=== PATIENT | female | born 1960 | race American Indian/Alaskan Native ===

== ENCOUNTER 2017-02-08 18:47 | Emergency (ER) | payer OTHER ==
[2017-02-08 19:37] VITALS: BP 174/87
--- NOTE | 2017-02-08 21:52 | Emergency Department Report ---
ED Eye Problem HPI - General Chief complaint: Eye Problems Stated complaint: LT EYE REDNESS Time Seen by Provider: 02/08/17 21:51 Source: patient, family Mode of arrival: Ambulatory Limitations: No Limitations - History of Present Illness Initial comments: Patient here complaining of left eye feels like trash is in her eye. She says she woke up this morning with this. She reports eye pain at 8 out of 10 and that her left eye watery. Reports redness to left eye. She wears glasses and denies wearing contacts. TD shot is not up-to-date. She doesn't remember any eye trauma or any foreign body getting in her eye. Reports left eye feels scratchy. Denies any blurred vision. Reports sensitivity to light. Denies any known contact with pink eye. Patient has history of high blood pressure and previous heart attack in 2013 with stent placement. She is not currently having any other symptoms away from left eye pain and sensation of foreign body. MD chief complaint: eye pain, eye redness, foreign body -: This morning Onset Description: sudden Location: left eye Place: home If Injury: none Eye Symptoms: redness, pain, foreign body sensation, photophobia Severity scale (0 -10): 8 If Pain, Quality: burning Consistency: constant Associated Symptoms: none Treatments Prior to Arrival: none - Related Data Patient Tetanus UTD: No Previous Rx's Medication Instructions Recorded Last Taken Type Acetaminophen/Codeine [Tylenol 1 tab PO Q6H PRN #12 tab 02/08/17 Unknown Rx /Codeine # 3 tab] Gentamicin 0.3% Ophth Soln 2 drops OS Q8H #1 bottle 02/08/17 Unknown Rx Allergies Allergy/AdvReac Type Severity Reaction Status Date / Time No Known Allergies Allergy Unverified 02/08/17 19:31 ED Review of Systems ROS: Stated complaint: LT EYE REDNESS Other details as noted in HPI Comment: All other systems reviewed and negative Constitutional: denies: chills, fever Eyes: eye pain, other (foreign body sensation). denies: eye discharge, vision change ENT: denies: ear pain, throat pain Respiratory: no symptoms reported Cardiovascular: denies: chest pain, palpitations, edema, syncope Gastrointestinal: denies: nausea, vomiting Musculoskeletal: denies: back pain, arthralgia Skin: denies: rash Neurological: denies: headache ED Past Medical Hx - Past Medical History Previous Medical History?: Yes Hx Hypertension: Yes Hx Heart Attack/AMI: Yes (2014 with Stent placement) - Surgical History Past Surgical History?: Yes Hx Coronary Stent: Yes Additional Surgical History: Tubal Ligation - Family History Family history: hypertension - Social History Smoking Status: Never Smoker Substance Use Type: None - Medications Home Medications: Home Medications Medication Instructions Recorded Confirmed Last Taken Type Acetaminophen/Codeine [Tylenol 1 tab PO Q6H PRN #12 tab 02/08/17 Unknown Rx /Codeine # 3 tab] Gentamicin 0.3% Ophth Soln 2 drops OS Q8H #1 bottle 02/08/17 Unknown Rx ED Physical Exam - General Limitations: No Limitations General appearance: alert, in no apparent distress - Head Head exam: Present: atraumatic, normocephalic, normal inspection - Eye Eye exam: Present: normal appearance, PERRL, EOMI, conjunctival injection (left) . Absent: scleral icterus, nystagmus, periorbital swelling, periorbital tenderness Pupils: Present: normal accommodation - Expanded Eye Exam Expanded Eyelids: Normal Inspection: Left (bilateral) Pupils: Regular, Round: Bilateral, Reactive: Bilateral Sclera/Conjunctival: Injection: Left (erythema without any drainage.) Anterior chamber: Normal Inspection: Bilateral Posterior chamber: Normal Inspection: Bilateral Visual acuity (R) = 20/: 30 Visual acuity (L) = 20/: 30 (both eyes 20/20) With correction: Yes - ENT ENT exam: Present: normal exam, normal orophraynx, mucous membranes moist, TM's normal bilaterally, normal external ear exam - Neck Neck exam: Present: normal inspection, full ROM. Absent: tenderness, meningismus, lymphadenopathy - Respiratory Respiratory exam: Present: normal lung sounds bilaterally. Absent: respiratory distress, chest wall tenderness - Cardiovascular Cardiovascular Exam: Present: regular rate, normal rhythm, normal heart sounds - Extremities Exam Extremities exam: Present: normal inspection, full ROM, normal capillary refill. Absent: tenderness, pedal edema, joint swelling, calf tenderness - Neurological Exam Neurological exam: Present: alert, oriented X3, normal gait - Psychiatric Psychiatric exam: Present: normal affect, normal mood - Skin Skin exam: Present: warm, dry, intact, normal color. Absent: rash ED Course Vital Signs 02/08/17 19:33 Temperature 98.9 F Pulse Rate 69 Respiratory 20 Rate Blood Pressure 174/87 O2 Sat by Pulse 97 Oximetry - Reevaluation(s) Reevaluation #1: 02/08/17 22:44 Patient given Percocet 5/325 tablets 2 tablets in emergency room for left eye pain. She was also updated on her tetanus. - Procedure Description Procedures done: Eye procedure: Left eye examine under Plata lamp. Prior to examination, 2 drops of tetracaine instilled and left eye and patient complaining of burning. Fluorescein staining applied to left eye. Left eye examine under Plata lamp and noted small corneal abrasion left lateral cornea. Eyes/with normal saline. Patient tolerated procedure well. She received Boostrix in emergency room. ED Medical Decision Making - Medical Decision Making ED course: Patient with complains of scratchy feeling to left eye and left eye pain. She was found to have left corneal abrasion. See procedure note for detail. Patient given Percocet 5/325 2 tablets and Boostrix vaccination and emergency room. I instructed her to wear dark glasses and not to wear contacts. She does not wear contacts. Patient has primary care at [place]. I discussed with her that she needs to schedule an appointment with director [facility] in 2-3 days for follow-up visit left corneal abrasion. I instructed her that I'll refer her to [facility] but she should also call her insurance and see if [facility] [employer]'s on her insurance that if not have them give her [facility] in her ZIP Code. She voiced understanding of discharge diagnosis and treatment plan and discharged home with prescription for Tylenol 3 and gentamicin ophthalmic drops. Patient stable and discharged home with her . Critical care attestation.: If time is entered above; I have spent that time in minutes in the direct care of this critically ill patient, excluding procedure time. ED Disposition Clinical Impression: Acute left eye pain Left corneal abrasion Qualifiers: Encounter type: initial encounter Qualified Code(s): S05.02XA - Injury of conjunctiva and corneal abrasion without foreign body, left eye, initial encounter Disposition: DISCHARGED TO HOME OR SELFCARE Is pt being admited?: No Does the pt Need Aspirin: No Condition: Stable Instructions: Corneal Abrasion (ED) Additional Instructions: Please follow up with [facility] as instructed. Use antibiotic eyedrops as instructed. Please do not drive or operate heavy machinery while taking Tylenol No. 3 as this medication will cause her to be drowsy. Prescriptions: Acetaminophen/Codeine [Tylenol /Codeine # 3 tab] 1 tab PO Q6H PRN #12 tab PRN Reason: Pain Gentamicin 0.3% Ophth Soln 2 drops OS Q8H #1 bottle Referrals: SALAZAR CRUM MD [Staff Physician] - 2-3 Days [facility] [Provider Group] - 2-3 Days Forms: Accompanied Note, Work/School Release Form(ED)
[2017-02-08] MEDS ORDERED: FUL-GLO OP ONE (21:53)
[2017-02-08] MEDS ORDERED: TETRACAINE 0.5% OS ONE (21:53)
[2017-02-08] MEDS ORDERED: BOOSTRIX IM ONE (22:36)
[2017-02-08] MEDS ORDERED: PERCOCET 5/325 PO ONE (22:36)
== END 2017-02-08 23:20 | disposition home or self-care (01) ==
LOC: ED 18:47
DX: S05.02XA Injury of conjunctiva and corneal abrasion without foreign body, left eye, initial encounter (principal); H57.12 Ocular pain, left eye; I10 Essential (primary) hypertension; I25.2 Old myocardial infarction; X58.XXXA Exposure to other specified factors, initial encounter; Y93.9 Activity, unspecified; Y92.9 Unspecified place or not applicable; Y99.9 Unspecified external cause status
CPT/HCPCS: 90471; 90715; 99283